=== PATIENT | female | born 1955 | race African-American/Black ===

== ENCOUNTER 2017-04-17 11:26 | Emergency (ER) | payer MEDICAID ==
[~2017-04-17] VITALS: Ht 172.7 cm; Wt 74.4 kg
[~2017-04-17 11:26] MED LIST: NORCO 5-325 TA1 EACH ORAL
[2017-04-17] MEDS ORDERED: NKM (11:39)
--- NOTE | 2017-04-17 11:46 | Emergency Room Report ---
History of Present Illness General Chief Complaint: Chest Pain Source: Patient Present Illness HPI 61 yo F with no sig pmhx of p/w chest pain for 3 days. Chest pain gradual in onset.. Localized to substernal area, no radiation to back or other areas, sharp in nature, gradual in onset, lasts all day. Occurred more on rest and not inc by exertion. - SOB. Denies palpitations, diaphoresis, n/v. This is the first occurrence of chest pain. Denies fever, chills, cough, abd pain. Denies trauma. Patient has never had a stress test or cardiac catheterization. Denies smoking, no family history of cardiac disease at a young age. No history of DVT PE in the past. No recent surgeries immobilization history of malignancy or history of taking oral contraceptives or estrogen pills Allergies: Coded Allergies: No Known Allergies (Unverified , 11/16/14) Patient History Past Medical History: none Past Surgical History: none Pertinent Family History: none Nursing Documentation-PMH Past Medical History: No Stated History Review of Systems Cardiovascular: Reports: chest pain All Other Systems: negative except mentioned in HPI Physical Exam Vital Signs Date Time Temp Pulse Resp B/P Pulse Ox O2 Delivery O2 Flow Rate FiO2 04/17/17 11:34 97.9 76 18 149/72 99 Room Air General Appearance: normal inspection, well appearing, no apparent distress, alert, GCS 15, non-toxic Head: normocephalic, atraumatic Eyes: bilateral eye EOMI, bilateral eye PERRL, bilateral eye normal inspection ENT: normal ENT inspection, normal pharynx, normal voice, moist mucus membranes Neck: normal inspection, full range of motion, supple Respiratory: normal inspection, lungs clear, normal breath sounds, no respiratory distress, no retraction, no wheezing, speaking full sentences, chest symmetrical Cardiovascular #1: normal inspection, regular rate, rhythm, no edema, normal capillary refill Gastrointestinal: normal inspection, non tender, soft, non-distended, no guarding Musculoskeletal: normal inspection, back normal, normal range of motion, non- tender Neurologic: normal inspection, alert, oriented x3, responsive, motor strength/ tone normal, sensory intact, normal gait, speech normal Medical Decision Making Diagnostic Impression: Primary Impression: Chest pain ER Course 61 yo F with no pmhx of p/w CP DDX: ACS vs. CHF vs. pneumonia vs. gastritis/GERD vs. pneumothorax PE on differential however at this time there are other more likely diagnoses. Plan: IV access, obtain labs including troponin, EKG, CXR ASA, pain control with nitro / morphine Anticipate admission ER course: Patient was treated with ASA. Labs unremarkable, Troponin neg x 1 EKG reveals no acute STT changes. CXR: no acute cardiopulmonary disease Patient has remained on a monitor, HD stable Disposition: Pt requires admission for cp given age and history. Patient requires admission for further workup, serial troponin, and possible stress test/cath inpatient. d/w transfrring facility Dr at [facility] with Dr. Lerma EKG Diagnostic Results Rate: normal Rhythm: NSR ST Segments: no acute changes Last Vital Signs Date Time Temp Pulse Resp B/P Pulse Ox O2 Delivery O2 Flow Rate FiO2 04/17/17 11:34 97.9 76 18 149/72 99 Room Air Disposition: XFER T-[facility]M HOSP Condition: Serious RetinoRosalie M.D. Apr 17, 2017 11:46
[2017-04-17 11:53] VITALS: BP 126/68
[2017-04-17 12:30] LABS: MEAN CORPUSCULAR HGB CONC 32.4 G/DL (32.0-36.0); MEAN CORPUSCULAR VOLUME 92 FL (80-99); MEAN PLATELET VOLUME 7.1 FL (6.5-10.1); PLATELET COUNT 232 K/UL (150-450); RED BLOOD COUNT 4.31 M/UL (4.20-5.40); WHITE BLOOD COUNT 3.7 K/UL (4.8-10.8)
[2017-04-17 13:00] VITALS: BP 128/74
[2017-04-17 13:02] LABS: ALANINE AMINOTRANSFERASE 15 U/L (3-33); ALBUMIN/GLOBULIN RATIO 1.5 (1.0-2.7); ANION GAP 9 (5-15); ASPARTATE AMINO TRANSFERASE 20 U/L (5-40); CALCIUM 9.9 mg/dL (8.6-10.2); CARBON DIOXIDE 30 mEQ/L (20-30); CHLORIDE 101 mEQ/L (98-107); CREATININE 0.9 mg/dL (0.5-0.9); GLOMERULAR FILTRATION RATE > 60 mL/min (>60); HEMOLYSIS 4; POTASSIUM 4.4 mEQ/L (3.4-4.9); SODIUM 140 mEQ/L (135-145); TOTAL PROTEIN 7.5 g/dL (6.6-8.7); TROPONIN I < 0.30 ng/mL (<=0.30)
[2017-04-17 13:12] LABS: CKMB < 1.5 ng/mL (< 3.8)
[2017-04-17 13:14] LABS: BAND NEUTROPHILS % (MANUAL) 0 % (0-8); BASOPHILS % (MANUAL) 0 % (0-2); EOSINOPHILS % (MANUAL) 0 % (0-3); LYMPHOCYTES % (MANUAL) 56 % (20-45); NEUTROPHILS % (MANUAL) 29 % (45-75); PLATELET ESTIMATE ADEQUATE; PLATELET MORPHOLOGY NORMAL; TOTAL CELLS COUNTED 100
[2017-04-17 14:00] VITALS: BP 109/68
[2017-04-17 15:00] VITALS: BP 112/74
--- NOTE | 2017-04-17 15:53 | Diagnostic Imaging Report ---
Indication: PAIN Technique: One view of the chest Comparison: none Findings: Lungs and pleural space are clear. Heart size is normal. The aorta is somewhat tortuous Impression: No acute process
[2017-04-17 16:09] VITALS: BP 93/78
--- NOTE | 2017-04-18 15:46 | Cardiology Report ---
APPROVED REPORT EKG Measurement Heart [id number] Normal sinus rhythm Normal ECG
== END 2017-04-17 17:00 | disposition short-term general hospital (02) ==
LOC: EMR 11:55
DX: R07.89 Other chest pain (principal)
CPT/HCPCS: 36415; 71010; 80053; 82550; 82553; 84484; 85007; 85025; 93005; 96374